=== PATIENT | male | born 1965 | race African-American/Black ===

== ENCOUNTER 2022-04-15 14:06 | Emergency (ER) | payer BC ==
--- NOTE | 2022-04-15 16:05 | EDPHYS ---
Physician Documentation [facility] Name: Dustin Baird Age: 56 yrs Sex: Male : 1965 Arrival Date: 04/15/2022 Time: 14:10 Bed Waiting Private MD: ED Physician Romeo Irizarry HPI: 04/15 16:30 This 56 yrs old Black Male presents to ER via Ambulatory with complaints of Cough, kb Congestion. 16:30 The patient or guardian reports cough, that is intermittent, described as mild, flu kb symptoms, low-grade fever. Onset: The symptoms/episode began/occurred yesterday. Severity of symptoms: At their worst the symptoms were moderate, in the emergency department the symptoms are unchanged. Modifying factors: The symptoms are alleviated by nothing, the symptoms are aggravated by nothing. Associated signs and symptoms: Pertinent positives: fever, rhinorrhea, sore throat, Pertinent negatives: chest pain, diarrhea, ear ache, nausea, vomiting. The patient has not experienced similar symptoms in the past. The patient has not recently seen a physician. Patient reports cough, congestion, itchy throat, and chills for 1 to 2 days. States he came to make sure he did not have COVID.. Historical: - Allergies: 14:42 No Known Allergies; iw - PMHx: 14:42 Hypertensive disorder; iw - PSHx: 14:42 None; iw - Immunization history:: Adult Immunizations unknown. - Social history:: Smoking status: unknown. ROS: 16:30 Abdomen/GI: Negative for abdominal pain, nausea, vomiting, diarrhea, and constipation. kb 16:30 Constitutional: Positive for chills, fever, malaise. 16:30 ENT: Positive for rhinorrhea, sinus congestion, sore throat. 16:30 Respiratory: Positive for cough, Negative for dyspnea on exertion, hemoptysis, orthopnea, pleurisy, shortness of breath, sputum production, wheezing. 16:30 All other systems are negative. Exam: 16:30 Constitutional: This is a well developed, well nourished patient who is awake, alert, kb and in no acute distress. Head/Face: Normocephalic, atraumatic. ENT: Moist Mucous membranes Cardiovascular: Regular rate and rhythm with a normal S1 and S2. No gallops, murmurs, or rubs. No pulse deficits. Respiratory: Respirations even and unlabored. No increased work of breathing. Talking in full sentences Abdomen/GI: Soft, non-tender. No distention Skin: Warm, dry with normal turgor. Normal color. MS/ Extremity: Pulses equal, no cyanosis. Neurovascular intact. Full, normal range of motion. Neuro: Awake and alert, GCS 15, oriented to person, place, time, and situation. Moves all extremities. Normal gait. Psych: Awake, alert, with orientation to person, place and time. Behavior, mood, and affect are within normal limits. Vital Signs: 14:41 BP 154 / 105; Pulse 65; Resp 20 S; Temp 97.3; Pulse Ox 100% on R/A; Weight 113.4 kg; iw Height 6 ft. 0 in. (182.88 cm); 14:41 Body Mass Index 33.91 (113.40 kg, 182.88 cm) iw MDM: 14:38 Patient medically screened. kb 16:30 Data reviewed: vital signs, nurses notes. Data interpreted: Pulse oximetry: on room air kb is 100 %. Interpretation: normal. Counseling: I had a detailed discussion with the patient and/or guardian regarding: the historical points, exam findings, and any diagnostic results supporting the discharge/admit diagnosis, lab results, the need for outpatient follow up, a family practitioner, to return to the emergency department if symptoms worsen or persist or if there are any questions or concerns that arise at home. 04/15 14:19 Order name: Flu; Complete Time: 14:55 iw 04/15 14:19 Order name: COVID-19 SARS RT PCR (Document "Date of Onset" if Symptomatic); Complete iw Time: 15:58 Administered Medications: No medications were administered Disposition Summary: 04/15/22 16:05 Discharge Ordered Location: Home kb Condition: Stable kb Diagnosis - SARS-associated coronavirus as the cause of diseases classified elsewhere kb Followup: kb - With: Emergency Department - When: As needed - Reason: Worsening of condition Followup: kb - With: Private Physician - When: 2 - 3 days - Reason: Recheck today's complaints, Continuance of care, Re-evaluation by your physician Discharge Instructions: - Discharge Summary Sheet kb - COVID-19 kb - Viral Illness, Adult kb Forms: - Medication Reconciliation Form kb - Thank You Letter kb - Antibiotic Education kb - Prescription Opioid Use kb Prescriptions: - Tessalon Perles 100 mg Oral Capsule - take 1 capsule by ORAL route every 8 hours As needed; 15 capsule; Refills: 0, kb Product Selection Permitted Signatures: Dispatcher [employer] Caro Magallon, REFERENCE LIBRARIAN-C REFERENCE LIBRARIAN-Yazmin Ramsay, RN RN iw
--- NOTE | 2022-04-15 16:05 | ER ---
Nurse's Notes [facility] Name: Dustin Baird Age: 56 yrs Sex: Male : 1965 Arrival Date: 04/15/2022 Time: 14:10 Bed Waiting Private MD: Diagnosis: SARS-associated coronavirus as the cause of diseases classified elsewhere Presentation: 04/15 14:41 Chief complaint: Patient states: cough, congestion, itchy throat X 1 -2 days. iw Coronavirus screen: Client presents with at least one sign or symptom that may indicate coronavirus-19. Ebola Screen: Patient negative for fever greater than or equal to 101.5 degrees Fahrenheit, and additional compatible Ebola Virus Disease symptoms Patient denies exposure to infectious person. Patient denies travel to an Ebola-affected area in the 21 days before illness onset. No symptoms or risks identified at this time. Initial Sepsis Screen: Does the patient meet any 2 criteria? No. Patient's initial sepsis screen is negative. Does the patient have a suspected source of infection? No. Patient's initial sepsis screen is negative. Risk Assessment: Do you want to hurt yourself or someone else? Patient reports no desire to harm self or others. Onset of symptoms was April 13, 2022. 14:41 Method Of Arrival: Ambulatory iw 14:41 Acuity: SUSANNE 4 iw Triage Assessment: 15:15 General: Appears in no apparent distress. Behavior is calm, appropriate for age. iw Respiratory: Breath sounds are clear bilaterally. Historical: - Allergies: 14:42 No Known Allergies; iw - PMHx: 14:42 Hypertensive disorder; iw - PSHx: 14:42 None; iw - Immunization history:: Adult Immunizations unknown. - Social history:: Smoking status: unknown. Screenin:15 Abuse screen: Denies threats or abuse. Denies injuries from another. Nutritional iw screening: No deficits noted. Tuberculosis screening: No symptoms or risk factors identified. Fall Risk None identified. Assessment: 15:00 General: Appears in no apparent distress. Behavior is calm, cooperative. iw 15:00 Neuro: Level of Consciousness is awake, alert, obeys commands, Oriented to person, iw place, time, situation, Moves all extremities. Full function. 15:00 Respiratory: Airway is patent Breath sounds are clear bilaterally. iw 15:15 Cardiovascular: Capillary refill < 3 seconds. iw 19:35 Pain:. iw Vital Signs: 14:41 BP 154 / 105; Pulse 65; Resp 20 S; Temp 97.3; Pulse Ox 100% on R/A; Weight 113.4 kg; iw Height 6 ft. 0 in. (182.88 cm); 14:41 Body Mass Index 33.91 (113.40 kg, 182.88 cm) iw ED Course: 14:10 Patient arrived in ED. mr 14:11 [facility] Alfred[facility] F[facility]C [facility]. kb 14:11 Romeo Irizarry MD is Attending Physician. kb 14:42 Triage completed. iw 15:00 Arm band placed on. iw 15:00 Patient has correct armband on for positive identification. iw 16:10 No provider procedures requiring assistance completed. Patient did not have IV access iw during this emergency room visit. 16:13 Yazmin Pierce, RN is Primary Nurse. iw Administered Medications: No medications were administered Medication: 15:00 VIS not applicable for this client. iw Outcome: 16:05 Discharge ordered by . kb 16:13 Discharged to home ambulatory, with family. iw 16:13 Condition: good 16:13 Discharge instructions given to patient, Instructed on discharge instructions, follow up and referral plans. medication usage, Demonstrated understanding of instructions, follow-up care, medications, Prescriptions given X 1. 16:13 Patient left the ED. iw Signatures: Caro Alfredo FNP-C FNP-Tim Tanya Hanley Yazmin Pierce, RN RN iw Corrections: (The following items were deleted from the chart) 19:36 15:00 General: Appears in no apparent distress. iw iw
[2022-04-15 17:43] VITALS: BP 154/105; TEMP 97.3; O2SAT 100
== END 2022-04-15 16:13 | disposition home or self-care (01) ==
LOC: ER 14:06
DX: U07.1 COVID-19 (principal); I10 Essential (primary) hypertension
CPT/HCPCS: 87804 ×2; U0003; 99282

== ENCOUNTER 2025-05-10 22:58 | Emergency (ER) | payer BC ==
--- OUTSIDE RECORDS SUMMARY | 2025-05-10 23:03 | XMS REPORT | Continuity of Care Document ---
Author Name Unknown Address [address] [facility] [address] [place] [address] [facility] [place] Address [address] [facility] [address] [place] [address] Care Team Providers Care Television [employer] Tester Name Role Phone Pcp-None Primary Care Physician Unavailab WES Bosch Attending Clinician Unavailable BRITANY NEWTON Attending Clinician Unavailable ANURADHA SERNA Attending Clinician UnavailWes Gutierrez MD Attending Clinician [phone] Toshia Reyes Attending Clinician + [phone] Anuradha Serna MD Attending Clinician [phone], [facility] Attending Clinician Unavailable TOSHIA BRITT Attending Clinician Unavailable Anuradha Serna MD Attending Clinician [phone] Deb Cantrell Attending Clinician [phone], [facility] Attending Clinician Unavailable Swati Gibson Attending Clinician [phone] SWATI VALDOVINOS Attending Clinician Unavailable Toshia Reyes Attending Clinician [phone] DEB JENSEN Attending Clinician Unavailable Lilian Sun MD Attending Clinician + [phone] ATANASOV, STRAHIL T Attending Clinician Unavaila ble PEDRO LUISNASPEDRITO STRAHIL T Attending Clinician Unavaila ble Doctor Unassigned, [place] Attending Clinician [facility] Tech, [facility] Attending Clinician Unavaila ble Lab, Ang - Db Attending Clinician Unavailable Edward Peacock Attending Clinician Unavailable Matthew Shirley Attending Clinician Unavail able Joey ROSSI, Regis Attending Clinician [phone] REGIS MENDOZA Attending Clinician Unavailable Negrita Pop MA Attending Clinician UnavailWes Gutierrez MD Attending Clinician [phone] JENNY SINGH Attending Clinician UnavailJenny Angulo Attending Clinician + [phone] Mick ROSSI, Olman Peña Attending Clinician [phone] William Avila DO Attending Clinician [phone] , [facility] Surg Spec Procedure Attending Clinician Unavailable Britany Newton MD Attending Clinician [phone] Comfort, [facility] Test Attending Clinician Unavailable Lab, [facility] Fam Pob I Attending Clinician Unavailab le 1, [facility] Bed Attending Clinician Unavail able Gramm TEAM FACILITATOR Tanna A Attending Clinician [phone] GRAMM, TANNA A Attending Clinician Unavailable Robles Joseph MD Attending Clinician [phone] Pob, [facility] Lab Main Attending Clinician UnavailWES Vazquez Admitting Clinician Unavailable BRITANY NEWTON Admitting Clinician Unavailable ANURADHA SERNAHMi Admitting Clinician UnavailBritany Tenorio MD Admitting Clinician [phone] Payers Payer Name Policy Type Policy Number Effective Date Expirati on Date Source [facility] [id number] 2020 00:00:00 Problems Condition Name Condition Details Condition Category Status Onset Date Resolution Date Last Treatment Date Treating Clinician Comments Source Erectile dysfunctio n, unspecifie d erectile dysfunctio n type Erectile dysfunctio n, unspecifie d erectile dysfunctio n type Disease Active 2023-09 00:00: [address] [facility] Low libido Low libido Disease Active 2024-1 0-29 00:00: 00 [facility] Cardiomega ly Cardiomega ly Disease Active 8- 00:00: 00 [facility] Chronic hiccups Chronic hiccups Disease Active 7 00:00: 00 [facility] Screening for colorectal cancer Screening for colorectal cancer Disease Active 2019-09 2-04 00:00: 00 Overview: Formattin g of this note might be different from the original. Added automatic ally from request for surgery [id number] [facility] Stage 2 chronic kidney disease Stage 2 chronic kidney disease Disease Active 2019-09 1-12 00:00: 00 [facility] Essential hypertensi on Essential hypertensi on Disease Active 11-18 00:00: 00 [facility] Cardiac murmur Cardiac murmur Disease Active 3 00:00: 00 [facility] Snoring Snoring Disease Active 11-18 00:00: 00 [facility] Obesity (BMI 30-39.9) Obesity (BMI 30-39.9) Disease Active 3 00:00: 00 [facility] Elevated total protein Elevated total protein Disease Active 3 00:00: 00 [facility] Elevated AST (SGOT) Elevated AST (SGOT) Disease Active 3 00:00: 00 [facility] Elevated serum creatinine Elevated serum creatinine Disease Active 3 00:00: 00 [facility] Hemorrhoid s Hemorrhoid s Disease Active 2011-09 0-17 00:00: 00 Overview: Formattin g of this note might be different from the original. Formattin g of this note might be different from the original. IMO 2017 Reg R1 [facility] Allergies, Adverse Reactions, Alerts Allergy Name Allergy Type Status Severity Reaction(s) Onset Date Inactive Date Treating Clinician Comments Source No Known Drug Allergie s DA Active U 04-09 00:00: 00 [facility] No Known Drug Allergie s DA Active U 04-05 00:00: 00 [facility] NO KNOWN ALLERGIE S Drug Class Active [facility] Social History Social Habit Start Date Stop Date Quantity Comments Source [facility] of Social function 2024-07-16 00:00:00 2024-07-16 00:00:00 [facility] Alcoholic beverage intake 2024-07-16 00:00:00 2024-07-16 00:00:00 Current non-drinker of alcohol (finding) [facility] Alcohol intake 2023-09-13 00:00:00 2023-09-13 00:00:00 Current non-drinker of alcohol (finding) [facility] Exposure to SARS-CoV-2 (event) 2022-11-20 00:00:00 2022-11-30 15:57:00 Not sure [facility] Tobacco use and exposure 2022-04-13 00:00:00 2022-04-13 00:00:00 Smokeless tobacco non-user [facility] Sex assigned at 1965 00:00:00 1965 00:00:00 [facility] Smoking Status Start Date Stop Date Source Never smoked tobacco [facility] Medications Ordered Medication Name Filled Medication Name Start Date Stop Date Current Medication? Ordering Clinician Indication Dosage Frequency Signature (SIG) Comments Components Source lisinopriL 20 mg tablet 03-14 00:00: 00 Yes [id number] 20mg Take 1 tablet by mouth in the morning. [facility] NIFEdipine ER 60 mg tablet 03-14 00:00: 00 Yes [id number] 60mg Take 1 tablet by mouth every morning. [facility] NIFEdipine XL 30 mg 24 hr tablet 03-14 00:00: 00 Yes [id number] 30mg Take 1 tablet by mouth every evening. [facility] rosuvastati n 10 mg tablet 03-14 00:00: 00 Yes [id number] 10mg Take 1 tablet by mouth at bedtime. [facility] NIFEdipine XL 30 mg 24 hr tablet 2022-09 00:00: 00 03-14 00:00 :00 No [id number] 30mg Take 1 tablet by mouth every evening. [facility] lisinopriL 20 mg tablet 2022-09 2-27 00:00: 00 03-14 00:00 :00 No [id number] 20mg Take 1 tablet by mouth in the morning. [facility] NIFEdipine ER 60 mg tablet 2022-09 2-27 00:00: 00 03-14 00:00 :00 No [id number] 60mg Take 1 tablet by mouth every morning. [facility] rosuvastati n 10 mg tablet 2022-09 2-27 00:00: 00 03-14 00:00 :00 No [id number] 10mg Take 1 tablet by mouth at bedtime. [facility] rosuvastati n 10 mg tablet 8-30 00:00: 00 09-13 00:00 :00 No 10mg Take 1 tablet by mouth at bedtime. [facility] lisinopriL 20 mg tablet 6-26 00:00: 00 09-13 00:00 :00 No [id number] 20mg Take 1 tablet by mouth in the morning. [facility] NIFEdipine ER 60 mg tablet 6-26 00:00: 00 09-13 00:00 :00 No [id number] 60mg Take 1 tablet by mouth in the morning. FOLLOW-UP FOR REFILLS [facility] carvediloL 6.25 mg tablet 626 00:00: 00 03-13 00:00 :00 No [id number] 6.25mg Take 1 tablet by mouth in the morning and 1 tablet in the evening. Take with meals. [facility] lisinopriL 20 mg tablet 2022-0 5-05 00:00: 00 03-13 00:00 :00 No [id number] 20mg Take 1 tablet by mouth in the morning. [facility] lisinopriL 20 mg tablet 2022-0 2-10 00:00: 00 01-20 00:00 :00 No [id number] 20mg Take 1 tablet by mouth in the morning. [facility] NIFEdipine ER 60 mg tablet 2021-09 0-25 00:00: 00 03-13 00:00 :00 No [id number] 60mg Take 1 tablet by mouth in the morning. FOLLOW-UP FOR REFILLS [facility] carvediloL 6.25 mg tablet 2021-09 0 00:00: 00 03-13 00:00 :00 No [id number] 6.25mg Take 1 tablet by mouth in the morning and 1 tablet in the evening. Take with meals. [facility] NIFEdipine ER 60 mg tablet 05-27 00:00: 00 07-12 00:00 :00 No [id number] 60mg Take 1 tablet by mouth in the morning. FOLLOW-UP FOR REFILLS [facility] NIFEdipine ER 60 mg tablet 05-18 00:00: 00 Yes [id number] 60mg Take 1 tablet by mouth in the morning. FOLLOW-UP FOR REFILLS [facility] carvediloL 6.25 mg tablet 05-18 00:00: 00 07-12 00:00 :00 No [id number] 6.25mg Take 1 tablet by mouth in the morning and 1 tablet in the evening. Take with meals. [facility] Omeprazole 20 mg tablet 04-15 00:00: 00 Yes [id number] 20mg Take 1 tablet by mouth in the morning. Follow-up with GI for further management . [facility] metoprolol succinate XL 25 mg 24 hr tablet 04-05 00:00: 00 05-18 00:00 :00 No [id number] 25mg Take 1 tablet by mouth in the morning. FOLLOW-UP WITH CARDIO FOR REFILLS [facility] NIFEdipine ER 60 mg tablet 04-05 00:00: 00 05-18 00:00 :00 No [id number] 60mg Take 1 tablet by mouth in the morning. FOLLOW-UP FOR REFILLS [facility] tadalafiL (CIALIS) 20 mg tablet 06-17 00:00: 00 Yes [id number] 20mg Take 1 tablet by mouth as needed for Erectile dysfunctio n. Not more than once daily [facility] Immunizations Ordered Immunization Name Filled Immunization Name Date Status Comments Source Influenza Virus Vaccine Quad IM 6-35 MO 2024-06-10 08:30:00 Completed [facility] TDAP 2024-06-10 08:30:00 Completed [facility] SARS-COV-2 COVID-19 PFIZER VACCINE 2024-06-10 08:30:00 Completed [facility] SARS-COV-2 COVID-19 PFIZER VACCINE 2024-03-14 09:30:00 Completed [facility] Influenza Virus Vaccine Quad IM 6-35 MO 2023-09-13 10:00:00 Completed [facility] TDAP 2023-09-13 10:00:00 Completed [facility] SARS-COV-2 COVID-19 PFIZER VACCINE 2023-09-13 10:00:00 Completed [facility] Influenza Virus Vaccine Quad IM 6-35 MO 2022-04-20 00:00:00 Completed [facility] TDAP 2022-04-20 00:00:00 Completed [facility] SARS-COV-2 COVID-19 PFIZER VACCINE 2022-04-20 00:00:00 Completed [facility] Influenza Virus Vaccine Quad IM 6-35 MO 2022-04-19 00:00:00 Completed [facility] TDAP 2022-04-19 00:00:00 Completed [facility] SARS-COV-2 COVID-19 PFIZER VACCINE 2022-04-19 00:00:00 Completed [facility] Influenza Virus Vaccine Quad IM 6-35 MO 2022-02-11 00:00:00 Completed [facility] TDAP 2022-02-11 00:00:00 Completed [facility] SARS-COV-2 COVID-19 PFIZER VACCINE 2022-02-11 00:00:00 Completed [facility] TDAP 2022-01-25 00:00:00 Completed [facility] TDAP 2022-01-25 00:00:00 Completed [facility] TDAP 2022-01-25 00:00:00 Completed [facility] TDAP 2022-01-25 00:00:00 Completed [facility] TDAP 2022-01-25 00:00:00 Completed [facility] TDAP 2022-01-25 00:00:00 Completed [facility] TDAP 2022-01-25 00:00:00 Completed [facility] TDAP 2022-01-25 00:00:00 Completed [facility] TDAP 2022-01-25 00:00:00 Completed [facility] TDAP 2022-01-25 00:00:00 Completed [facility] TDAP 2022-01-25 00:00:00 Completed [facility] TDAP 2022-01-25 00:00:00 Completed [facility] TDAP 2022-01-25 00:00:00 Completed [facility] TDAP 2022-01-25 00:00:00 Completed [facility] TDAP 2022-01-25 00:00:00 Completed [facility] TDAP 2022-01-25 00:00:00 Completed [facility] TDAP 2022-01-25 00:00:00 Completed [facility] TDAP 2022-01-25 00:00:00 Completed [facility] TDAP 2022-01-25 00:00:00 Completed [facility] TDAP 2022-01-25 00:00:00 Completed [facility] TDAP 2022-01-25 00:00:00 Completed [facility] TDAP 2022-01-25 00:00:00 Completed [facility] TDAP 2022-01-25 00:00:00 Completed [facility] TDAP 2022-01-25 00:00:00 Completed [facility] TDAP 2022-01-25 00:00:00 Completed [facility] TDAP 2022-01-25 00:00:00 Completed [facility] SARS-COV-2 COVID-19 PFIZER VACCINE 2022-01-09 00:00:00 Completed [facility] SARS-COV-2 COVID-19 PFIZER VACCINE 2022-01-09 00:00:00 Completed [facility] SARS-COV-2 COVID-19 PFIZER VACCINE 2022-01-09 00:00:00 Completed [facility] SARS-COV-2 COVID-19 PFIZER VACCINE 2022-01-09 00:00:00 Completed [facility] SARS-COV-2 COVID-19 PFIZER VACCINE 2022-01-09 00:00:00 Completed [facility] SARS-COV-2 COVID-19 PFIZER VACCINE 2022-01-09 00:00:00 Completed [facility] SARS-COV-2 COVID-19 PFIZER VACCINE 2022-01-09 00:00:00 Completed [facility] SARS-COV-2 COVID-19 PFIZER VACCINE 2022-01-09 00:00:00 Completed [facility] SARS-COV-2 COVID-19 PFIZER VACCINE 2022-01-09 00:00:00 Completed [facility] SARS-COV-2 COVID-19 PFIZER VACCINE 2022-01-09 00:00:00 Completed [facility] SARS-COV-2 COVID-19 PFIZER VACCINE 2022-01-09 00:00:00 Completed [facility] SARS-COV-2 COVID-19 PFIZER VACCINE 2022-01-09 00:00:00 Completed [facility] SARS-COV-2 COVID-19 PFIZER VACCINE 2022-01-09 00:00:00 Completed [facility] SARS-COV-2 COVID-19 PFIZER VACCINE 2022-01-09 00:00:00 Completed [facility] SARS-COV-2 COVID-19 PFIZER VACCINE 2022-01-09 00:00:00 Completed [facility] SARS-COV-2 COVID-19 PFIZER VACCINE 2022-01-09 00:00:00 Completed [facility] SARS-COV-2 COVID-19 PFIZER VACCINE 2022-01-09 00:00:00 Completed [facility] SARS-COV-2 COVID-19 PFIZER VACCINE 2022-01-09 00:00:00 Completed [facility] SARS-COV-2 COVID-19 PFIZER VACCINE 2022-01-09 00:00:00 Completed [facility] SARS-COV-2 COVID-19 PFIZER VACCINE 2022-01-09 00:00:00 Completed [facility] SARS-COV-2 COVID-19 PFIZER VACCINE 2022-01-09 00:00:00 Completed [facility] SARS-COV-2 COVID-19 PFIZER VACCINE 2022-01-09 00:00:00 Completed [facility] SARS-COV-2 COVID-19 PFIZER VACCINE 2022-01-09 00:00:00 Completed [facility] SARS-COV-2 COVID-19 PFIZER VACCINE 2022-01-09 00:00:00 Completed [facility] SARS-COV-2 COVID-19 PFIZER VACCINE 2022-01-09 00:00:00 Completed [facility] SARS-COV-2 COVID-19 PFIZER VACCINE 2022-01-09 00:00:00 Completed [facility] SARS-COV-2 COVID-19 PFIZER VACCINE 2022-01-08 00:00:00 Completed [facility] SARS-COV-2 COVID-19 PFIZER VACCINE 2022-01-08 00:00:00 Completed [facility] SARS-COV-2 COVID-19 PFIZER VACCINE 2022-01-08 00:00:00 Completed [facility] SARS-COV-2 COVID-19 PFIZER VACCINE 2022-01-08 00:00:00 Completed [facility] SARS-COV-2 COVID-19 PFIZER VACCINE 2022-01-08 00:00:00 Completed [facility] SARS-COV-2 COVID-19 PFIZER VACCINE 2022-01-08 00:00:00 Completed [facility] SARS-COV-2 COVID-19 PFIZER VACCINE 2022-01-08 00:00:00 Completed [facility] SARS-COV-2 COVID-19 PFIZER VACCINE 2022-01-08 00:00:00 Completed [facility] SARS-COV-2 COVID-19 PFIZER VACCINE 2022-01-08 00:00:00 Completed [facility] SARS-COV-2 COVID-19 PFIZER VACCINE 2022-01-08 00:00:00 Completed [facility] SARS-COV-2 COVID-19 PFIZER VACCINE 2022-01-08 00:00:00 Completed [facility] SARS-COV-2 COVID-19 PFIZER VACCINE 2022-01-08 00:00:00 Completed [facility] SARS-COV-2 COVID-19 PFIZER VACCINE 2022-01-08 00:00:00 Completed [facility] SARS-COV-2 COVID-19 PFIZER VACCINE 2022-01-08 00:00:00 Completed [facility] SARS-COV-2 COVID-19 PFIZER VACCINE 2022-01-08 00:00:00 Completed [facility] SARS-COV-2 COVID-19 PFIZER VACCINE 2022-01-08 00:00:00 Completed [facility] SARS-COV-2 COVID-19 PFIZER VACCINE 2022-01-08 00:00:00 Completed [facility] SARS-COV-2 COVID-19 PFIZER VACCINE 2022-01-08 00:00:00 Completed [facility] SARS-COV-2 COVID-19 PFIZER VACCINE 2022-01-08 00:00:00 Completed [facility] SARS-COV-2 COVID-19 PFIZER VACCINE 2022-01-08 00:00:00 Completed [facility] SARS-COV-2 COVID-19 PFIZER VACCINE 2022-01-08 00:00:00 Completed [facility] SARS-COV-2 COVID-19 PFIZER VACCINE 2022-01-08 00:00:00 Completed [facility] SARS-COV-2 COVID-19 PFIZER VACCINE 2022-01-08 00:00:00 Completed [facility] SARS-COV-2 COVID-19 PFIZER VACCINE 2022-01-08 00:00:00 Completed [facility] SARS-COV-2 COVID-19 PFIZER VACCINE 2022-01-08 00:00:00 Completed [facility] SARS-COV-2 COVID-19 PFIZER VACCINE 2022-01-08 00:00:00 Completed [facility] SARS-COV-2 COVID-19 PFIZER VACCINE 2022-01-08 00:00:00 Completed SARS-COV-2 COVID-19 PFIZER VACCINE 2020-12-18 00:00:00 Completed [facility] SARS-COV-2 COVID-19 PFIZER VACCINE 2020-12-18 00:00:00 Completed [facility] SARS-COV-2 COVID-19 PFIZER VACCINE 2020-12-18 00:00:00 Completed [facility] SARS-COV-2 COVID-19 PFIZER VACCINE 2020-12-18 00:00:00 Completed [facility] SARS-COV-2 COVID-19 PFIZER VACCINE 2020-12-18 00:00:00 Completed [facility] SARS-COV-2 COVID-19 PFIZER VACCINE 2020-12-18 00:00:00 Completed [facility] SARS-COV-2 COVID-19 PFIZER VACCINE 2020-12-18 00:00:00 Completed [facility] SARS-COV-2 COVID-19 PFIZER VACCINE 2020-12-18 00:00:00 Completed [facility] SARS-COV-2 COVID-19 PFIZER VACCINE 2020-12-18 00:00:00 Completed [facility] SARS-COV-2 COVID-19 PFIZER VACCINE 2020-12-18 00:00:00 Completed [facility] SARS-COV-2 COVID-19 PFIZER VACCINE 2020-12-18 00:00:00 Completed [facility] SARS-COV-2 COVID-19 PFIZER VACCINE 2020-12-18 00:00:00 Completed [facility] SARS-COV-2 COVID-19 PFIZER VACCINE 2020-12-18 00:00:00 Completed [facility] SARS-COV-2 COVID-19 PFIZER VACCINE 2020-12-18 00:00:00 Completed [facility] SARS-COV-2 COVID-19 PFIZER VACCINE 2020-12-18 00:00:00 Completed [facility] SARS-COV-2 COVID-19 PFIZER VACCINE 2020-12-18 00:00:00 Completed [facility] SARS-COV-2 COVID-19 PFIZER VACCINE 2020-12-18 00:00:00 Completed [facility] SARS-COV-2 COVID-19 PFIZER VACCINE 2020-12-18 00:00:00 Completed [facility] SARS-COV-2 COVID-19 PFIZER VACCINE 2020-12-18 00:00:00 Completed [facility] SARS-COV-2 COVID-19 PFIZER VACCINE 2020-12-18 00:00:00 Completed [facility] SARS-COV-2 COVID-19 PFIZER VACCINE 2020-12-18 00:00:00 Completed [facility] SARS-COV-2 COVID-19 PFIZER VACCINE 2020-12-18 00:00:00 Completed [facility] SARS-COV-2 COVID-19 PFIZER VACCINE 2020-12-18 00:00:00 Completed [facility] SARS-COV-2 COVID-19 PFIZER VACCINE 2020-12-18 00:00:00 Completed [facility] SARS-COV-2 COVID-19 PFIZER VACCINE 2020-12-18 00:00:00 Completed [facility] SARS-COV-2 COVID-19 PFIZER VACCINE 2020-12-18 00:00:00 Completed [facility] Influenza Virus Vaccine Quad IM 6-35 MO 2020-06-18 00:00:00 Completed [facility] Influenza Virus Vaccine Quad IM 6-35 MO 2020-06-18 00:00:00 Completed [facility] Influenza Virus Vaccine Quad IM 6-35 MO 2020-06-18 00:00:00 Completed [facility] Influenza Virus Vaccine Quad IM 6-35 MO 2020-06-18 00:00:00 Completed [facility] Influenza Virus Vaccine Quad IM 6-35 MO 2020-06-18 00:00:00 Completed [facility] Influenza Virus Vaccine Quad IM 6-35 MO 2020-06-18 00:00:00 Completed [facility] Influenza Virus Vaccine Quad IM 6-35 MO 2020-06-18 00:00:00 Completed [facility] Influenza Virus Vaccine Quad IM 6-35 MO 2020-06-18 00:00:00 Completed [facility] Influenza Virus Vaccine Quad IM 6-35 MO 2020-06-18 00:00:00 Completed [facility] Influenza Virus Vaccine Quad IM 6-35 MO 2020-06-18 00:00:00 Completed [facility] Influenza Virus Vaccine Quad IM 6-35 MO 2020-06-18 00:00:00 Completed [facility] Influenza Virus Vaccine Quad IM 6-35 MO 2020-06-18 00:00:00 Completed [facility] Influenza Virus Vaccine Quad IM 6-35 MO 2020-06-18 00:00:00 Completed [facility] Influenza Virus Vaccine Quad IM 6-35 MO 2020-06-18 00:00:00 Completed [facility] Influenza Virus Vaccine Quad IM 6-35 MO 2020-06-18 00:00:00 Completed [facility] Influenza Virus Vaccine Quad IM 6-35 MO 2020-06-18 00:00:00 Completed [facility] Influenza Virus Vaccine Quad IM 6-35 MO 2020-06-18 00:00:00 Completed [facility] Influenza Virus Vaccine Quad IM 6-35 MO 2020-06-18 00:00:00 Completed [facility] Influenza Virus Vaccine Quad IM 6-35 MO 2020-06-18 00:00:00 Completed [facility] Influenza Virus Vaccine Quad IM 6-35 MO 2020-06-18 00:00:00 Completed [facility] Influenza Virus Vaccine Quad IM 6-35 MO 2020-06-18 00:00:00 Completed [facility] Influenza Virus Vaccine Quad IM 6-35 MO 2020-06-18 00:00:00 Completed [facility] Influenza Virus Vaccine Quad IM 6-35 MO 2020-06-18 00:00:00 Completed [facility] Influenza Virus Vaccine Quad IM 6-35 MO 2020-06-18 00:00:00 Completed [facility] Influenza Virus Vaccine Quad IM 6-35 MO 2020-06-18 00:00:00 Completed [facility] Influenza Virus Vaccine Quad IM 6-35 MO 2020-06-18 00:00:00 Completed [facility] Vital Signs Vital Name Observation Time Observation Value Comments S ource Systolic blood pressure 2024-07-16 18:48:00 160 mm[Hg] [facility] Diastolic blood pressure 2024-07-16 18:48:00 103 mm[Hg] [facility] Heart rate 2024-07-16 18:48:00 71 /min [facility] Body temperature 2024-07-16 18:45:00 36.5 Ijeoma [facility] Respiratory rate 2024-07-16 18:45:00 20 /min [facility] Body weight 2024-07-16 18:45:00 117.028 kg [facility] BMI 2024-07-16 18:45:00 34.99 kg/m2 [facility] Oxygen saturation in Arterial blood by Pulse oximetry 2024-07-16 18:45:00 96 /min [facility] Systolic blood pressure 2024-03-14 14:43:00 138 mm[Hg] [facility] Diastolic blood pressure 2024-03-14 14:43:00 90 mm[Hg] [facility] Heart rate 2024-03-14 14:43:00 69 /min [facility] Body temperature 2024-03-14 14:43:00 36.67 Ijeoma [facility] Respiratory rate 2024-03-14 14:43:00 19 /min [facility] Body height 2024-03-14 14:43:00 182.9 cm [facility] Body weight 2024-03-14 14:43:00 116.257 kg [facility] BMI 2024-03-14 14:43:00 34.76 kg/m2 [facility] Oxygen saturation in Arterial blood by Pulse oximetry 2024-03-14 14:43:00 96 /min [facility] Systolic blood pressure 2023-09-13 16:27:00 147 mm[Hg] [facility] Diastolic blood pressure 2023-09-13 16:27:00 102 mm[Hg] [facility] Heart rate 2023-09-13 16:27:00 90 /min [facility] Oxygen saturation in Arterial blood by Pulse oximetry 2023-09-13 16:27:00 96 /min [facility] Respiratory rate 2023-09-13 16:26:00 16 /min [facility] Body height 2023-09-13 16:26:00 182.9 cm [facility] Body weight 2023-09-13 16:26:00 115.168 kg [facility] BMI 2023-09-13 16:26:00 34.44 kg/m2 [facility] Systolic blood pressure 2023-03-13 19:43:00 160 mm[Hg] [facility] Diastolic blood pressure 2023-03-13 19:43:00 113 mm[Hg] [facility] Heart rate 2023-03-13 19:43:00 48 /min [facility] Respiratory rate 2023-03-13 19:34:00 19 /min [facility] Body height 2023-03-13 19:34:00 182.9 cm [facility] Body weight 2023-03-13 19:34:00 115.168 kg [facility] BMI 2023-03-13 19:34:00 34.44 kg/m2 [facility] O[facility] saturation in Arterial blood by Pulse oximetry 2023-03-13 19:34:00 95 /min [facility] Systolic blood pressure 2023-02-28 14:47:00 124 mm[Hg] [facility] Diastolic blood pressure 2023-02-28 14:47:00 83 mm[Hg] [facility] Heart rate 2023-02-28 14:40:00 75 /min [facility] Body temperature 2023-02-28 14:40:00 36.72 Ijeoma [facility] Respiratory rate 2023-02-28 14:40:00 17 /min [facility] Body height 2023-02-28 14:40:00 182.9 cm [facility] Body weight 2023-02-28 14:40:00 115.622 kg [facility] BMI 2023-02-28 14:40:00 34.57 kg/m2 [facility] Oxygen saturation in Arterial blood by Pulse oximetry 2023-02-28 14:40:00 96 /min [facility] Systolic blood pressure 2022-11-30 21:12:00 136 mm[Hg] [facility] Diastolic blood pressure 2022-11-30 21:12:00 88 mm[Hg] [facility] Heart rate 2022-11-30 21:12:00 69 /min [facility] Respiratory rate 2022-11-30 21:11:00 19 /min [facility] Body height 2022-11-30 21:11:00 182.9 cm [facility] Body weight 2022-11-30 21:11:00 120.067 kg [facility] BMI 2022-11-30 21:11:00 35.90 kg/m2 [facility] Oxygen saturation in Arterial blood by Pulse oximetry 2022-11-30 21:11:00 94 /min [facility] Systolic blood pressure 2022-10-28 14:24:00 155 mm[Hg] [facility] Diastolic blood pressure 2022-10-28 14:24:00 99 mm[Hg] [facility] Heart rate 2022-10-28 14:16:00 71 /min [facility] Body height 2022-10-28 14:16:00 182.9 cm [facility] Body weight 2022-10-28 14:16:00 121.02 kg [facility] BMI 2022-10-28 14:16:00 36.18 kg/m2 [facility] Oxygen saturation in Arterial blood by Pulse oximetry 2022-10-28 14:16:00 96 /min [facility] Systolic blood pressure 2022-07-12 18:15:00 136 mm[Hg] [facility] Diastolic blood pressure 2022-07-12 18:15:00 82 mm[Hg] [facility] Heart rate 2022-07-12 18:15:00 80 /min [facility] Body temperature 2022-07-12 18:15:00 36.56 Ijeoma [facility] Body height 2022-07-12 18:15:00 182.9 cm [facility] Body weight 2022-07-12 18:15:00 117.618 kg [facility] BMI 2022-07-12 18:15:00 35.17 kg/m2 [facility] Oxygen saturation in Arterial blood by Pulse oximetry 2022-07-12 18:15:00 96 /min [facility] Systolic blood pressure 2022-05-18 20:18:00 165 mm[Hg] [facility] Diastolic blood pressure 2022-05-18 20:18:00 110 mm[Hg] [facility] Heart rate 2022-05-18 20:18:00 71 /min [facility] Oxygen saturation in Arterial blood by Pulse oximetry 2022-05-18 20:18:00 95 /min [facility] Body temperature 2022-05-18 20:14:00 36.56 Ijeoma [facility] Respiratory rate 2022-05-18 20:14:00 18 /min [facility] Body height 2022-05-18 20:14:00 182.9 cm [facility] Body weight 2022-05-18 20:14:00 116.847 kg [facility] BMI 2022-05-18 20:14:00 34.94 kg/m2 [facility] Procedures Procedure Date / Time Performed Performing Clinician Source CARI,POST-VOID RES,US,NON-IMAGING 2024-07-16 18:55:00 Wes Saavedra [facility] ASSIGNMENT OF BENEFITS 2023-02-28 14:27:25 Docto r Unassigned, [place] [facility] SLEEP STUDY DATA REPORT 2023-01-03 05:01:00 Doct or Unassigned, [place] [facility] PATIENT FINANCIAL POLICY 2022-11-30 21:01:56 Doctor Unassigned, [place] [facility] DME/SUPPLY JUSTIFICATION 2022-09-06 06:01:00 Doc tor Unassigned, [place] [facility] INSURANCE CORRESPONDENCE 2022-05-24 05:01:00 Doc tor Unassigned, [place] [facility] HB ECG ROUTINE & RHYTHM STRIP 2022-05-18 20:20:43 Anuradha Serna [facility] Encounters Start Date/Time End Date/Time Encounter Type Admission Type Attending Clinicians Care Facility Care Department Encounter ID Source 2024-07-17 08:34:13 Outpatient WES YANEZ [facility] SUJeana [id number] [facility] 2021-07-17 11:11:52 Outpatient BRITANY NEWTON [facility] [id number] [facility] 2025-02-04 09:15:00 2025-02-04 09:15:00 Outpatient WES YANEZ [facility] [id number] [facility] 2025-02-04 09:15:00 2025-02-04 09:15:00 Outpatient WES YANEZ [facility] [id number] [facility] 2024-11-26 11:30:00 2024-11-26 11:30:00 [facility] [id number] [facility] 2024-10-15 10:15:00 2024-10-15 10:15:00 Outpatient R [facility] [id number] [facility] 2024-08-27 10:45:00 2024-08-27 10:45:00 Outpatient R KIRK [facility] [id number] [facility] 2024-08-26 09:00:00 2024-08-26 09:00:00 Outpatient R ANURADHA SERNA [facility] [id number] [facility] 2024-07-16 13:00:00 2024-07-16 14:36:23 Outpatient R KIRK [facility] [id number] [facility] 2024-07-16 13:00:00 2024-07-16 14:36:23 Office Visit Kirk [facility] 1.840.114 350.1.13.10 4.2.7.2.686 [id number] [facility] 2024-06-11 00:00:00 2024-06-14 17:02:18 Telephone [facility] 1.2.840.114 350.1.13.10 4.2.7.2.686 [id number] [facility] 2024-06-13 00:00:00 2024-06-14 16:06:28 Telephone [facility] 1.2.840.114 350.1.13.10 4.2.7.2.686 [id number] [facility] 2024-06-11 08:30:00 2024-06-11 08:30:00 Outpatient R ISAACWERI, [facility] [id number] [facility] 2024-06-10 08:30:00 2024-06-10 08:45:00 Criminal Attorney Visit 2, Adc Lab Toshia Britt 2, Adc Lab [facility] 1.2.840.114 350.1.13.10 4.2.7.2.686 [id number] [facility] 2024-06-10 08:30:00 2024-06-10 08:30:00 Outpatient R TOSHIA BRITT [facility] [id number] [facility] 2024-03-14 09:30:00 2024-03-14 10:02:22 Outpatient R ANURADHA SERNA [facility] [id number] [facility] 2024-03-14 09:30:00 2024-03-14 10:02:22 Office Visit Anuradha Serna [facility] 1.2.840.114 350.1.13.10 4.2.7.2.686 [id number] [facility] 2023-09-13 10:00:00 2023-09-13 10:55:00 Outpatient R ANURADHA SERNA [facility] [id number] [facility] 2023-09-13 10:00:00 2023-09-13 10:55:00 Office Visit Anuradha Serna [facility] 1.2.840.114 350.1.13.10 4.2.7.2.686 [id number] [facility] 2023-05-16 00:00:00 2023-05-16 00:00:00 Telephone Deb Jensen [facility] 1.2.840.114 350.1.13.10 4.2.7.2.686 [id number] [facility] 2023-05-12 08:45:00 2023-05-12 09:00:00 Criminal Attorney Visit 2, Adc Lab Ray, Swati Peña [facility] 1..840.114 350.1.13.10 4.2.7.2.686 [id number] [facility] 2023-05-12 08:45:00 2023-05-12 08:48:29 Outpatient R SWATI VALDOVINOS [facility] [id number] [facility] 2023-04-17 00:00:00 2023-04-17 00:00:00 Toshia Singh [facility] 1..840.114 350.1.13.10 4.2.7.2.686 [id number] [facility] 2023-03-13 14:20:00 2023-03-13 15:16:31 Outpatient R DEB JENSEN [facility] [id number] [facility] 2023-03-13 14:20:00 2023-03-13 15:16:31 Office Visit Deb Jensen [facility] 1..840.114 350.1.13.10 4.2.7.2.686 [id number] [facility] 2023-03-13 13:00:00 2023-03-13 13:00:00 Outpatient R DEB JENSEN [facility] [id number] [facility] 2023-03-10 00:00:00 2023-03-10 00:00:00 Telephone Lilian Sun [facility] 1..840.114 350.1.13.10 4.2.7.2.686 [id number] [facility] 2023-02-28 10:00:00 2023-02-28 10:30:00 Office Visit Lilian Sun [facility] 1.114 350..13.10 4.2.7.2.686 [id number] [facility] 2023-02-28 10:00:00 2023-02-28 10:00:00 Outpatient R LILIAN SUN STRAMDRobin [facility] [id number] [facility] 2023-02-28 00:00:00 2023-02-28 00:00:00 Orders Only Doctor Unassigned, [place] [facility] 1.114 350..13.10 4.2.7.2.686 [id number] [facility] 2023-02-28 00:00:00 2023-02-28 00:00:00 Telephone [facility] 1.114 350..13.10 4.2.7.2.686 [id number] [facility] 2023-02-07 09:30:00 2023-02-07 09:30:00 Outpatient R LILIAN SUN [facility] [id number] [facility] 2023-02-01 15:30:00 2023-02-01 15:30:00 [facility] [id number] [facility] 2023-01-18 08:40:00 2023-01-18 08:40:00 Outpatient DEB DIA [facility] [id number] [facility] 2023-01-16 00:00:00 2023-01-16 00:00:00 Toshia Singh [facility] 1.840.114 350..13.10 4.2.7.2.686 [id number] [facility] 2023-01-03 12:00:00 2023-01-03 12:15:00 Criminal Attorney Visit [facility] Pedro LuisNayan velezidalia Nicholas [facility] 1.2840.114 350.1.13.10 4.2.7.2.686 [id number] [facility] 2023-01-03 12:00:00 2023-01-03 12:00:00 [facility] [id number] 2023-01-03 00:00:00 2023-01-03 00:00:00 Orders Only Doctor Unassigned, [place] [facility] 1.2840.114 350.1.13.10 4.2.7.2.686 [id number] [facility] 2022-12-26 14:20:00 2022-12-26 14:20:00 Outpatient R DEB JENSEN [facility] [id number] [facility] 2022-12-08 00:00:00 2022-12-08 00:00:00 Telephone Lilian Sun [facility] 1.2.840.114 350.1.13.10 4.2.7.2.686 [id number] [facility] 2022-11-30 16:30:00 2022-11-30 17:00:00 Office Visit Pedro LuisNayan velezidalia [facility] 1.2840.114 350.1.13.10 4.2.7.2.686 [id number] [facility] 2022-11-30 16:30:00 2022-11-30 16:30:00 Outpatient R LILIAN SUN STRAMDRobin [facility] [id number] [facility] 2022-11-30 00:00:00 2022-11-30 00:00:00 Orders Only Doctor Unassigned, [place] [facility] 1.114 350.1.13.10 4.2.7.2.686 [id number] [facility] 2022-11-17 00:00:00 2022-11-17 00:00:00 [facility] 1.114 350.1.13.10 4.2.7.2.686 [id number] [facility] 2022-10-28 09:30:00 2022-10-28 10:32:41 Criminal Attorney Visit Lab, Sascha Britt [facility] 1.114 350.1.13.10 4.2.7.2.686 [id number] [facility] 2022-10-28 08:00:00 2022-10-28 09:25:56 Outpatient R TOSHIA BRITT [facility] [id number] [facility] 2022-10-28 08:00:00 2022-10-28 09:25:56 Office Visit Balwinder [facility] 1.114 350.1.13.10 4.2.7.2.686 [id number] [facility] 2022-09-23 14:30:00 2022-09-23 14:30:00 Outpatient R TOSHIA BRITT [facility] [id number] [facility] 2022-09-08 00:00:00 2022-09-08 00:00:00 Telephone Anuradha Serna [facility] 1.84.114 350.1.13.10 4.2.7.2.686 [id number] [facility] 2022-09-06 00:00:00 2022-09-06 00:00:00 Orders Only Doctor Unassigned, [place] [facility] 1.840.114 350.1.13.10 4.2.7.2.686 [id number] [facility] 2022-09-05 10:30:00 2022-09-05 10:41:00 Outpatient R ANURADHA SERNA [facility] [id number] [facility] 2022-09-05 00:00:00 2022-09-05 00:00:00 Telephone Lilian Sun [facility] 1..840.114 350.1.13.10 4.2.7.2.686 [id number] [facility] 2022-08-24 09:00:00 2022-08-24 09:00:00 Outpatient R ANURADHA SERNA [facility] [id number] [facility] 2022-07-28 00:00:00 2022-07-28 00:00:00 Toshia Singh [facility] 1..840.114 350.1.13.10 4.2.7.2.686 [id number] [facility] 2022-07-12 13:40:00 2022-07-12 13:49:48 Outpatient R DEB JENSEN [facility] [id number] [facility] 2022-07-12 13:40:00 2022-07-12 13:49:48 Office Visit Deb Jensen [facility] 1..840.114 350.1.13.10 4.2.7.2.686 [id number] [facility] 2022-07-01 14:00:00 2022-07-01 14:00:00 Outpatient R ANURADHA SERNA [facility] [id number] [facility] 2022-06-24 09:00:00 2022-06-24 09:00:00 Outpatient R ANURADHA SERNA [facility] [id number] [facility] 2022-06-02 00:00:00 2022-06-02 00:00:00 Telephone Anuradha Serna [facility] 1.2.840.114 350.1.13.10 4.2.7.2.686 [id number] [facility] 2022-05-27 16:00:00 2022-05-27 23:59:00 Outpatient R ANURADHA SERNA [facility] [id number] [facility] 2022-05-27 16:00:00 2022-05-27 16:00:00 Outpatient R ANURADHA SERNA [facility] [id number] [facility] 2022-05-24 00:00:00 2022-05-24 00:00:00 Orders Only Doctor Unassigned, [place] [facility] 1.840.114 350.1.13.10 4.2.7.2.686 [id number] [facility] 2022-05-21 00:00:00 2022-05-21 00:00:00 Telephone Anuradha Serna [facility] 1.2.840.114 350.1.13.10 4.2.7.2.686 [id number] [facility] 2022-05-18 14:30:00 2022-05-18 15:43:52 Office Visit Anuradha Serna [facility] 1.2.840.114 350.1.13.10 4.2.7.2.686 [id number] [facility] 2022-05-18 14:30:00 2022-05-18 15:43:52 Outpatient R ANURADHA SERNA [facility] [id number] [facility] 2022-05-18 14:30:00 2022-05-18 15:43:52 Outpatient R ANURADHA SERNA [facility] [id number] [facility] 2022-05-18 09:00:00 2022-05-18 09:00:00 Outpatient R ANURADHA SERNA [facility] [id number] [facility] 2022-05-12 00:00:00 2022-05-12 00:00:00 Refill Ray Swati A [facility] 1..840.114 350.1.13.10 4.2.7.2.686 [id number] [facility] 2022-05-02 00:00:00 2022-05-02 00:00:00 Refill Toshia Britt [facility] 1..840.114 350.1.13.10 4.2.7.2.686 [id number] [facility] 2022-04-21 00:00:00 2022-04-21 00:00:00 Telephone Ray [facility] 1..840.114 350.1.13.10 4.2.7.2.686 [id number] [facility] 2022-04-20 00:00:00 2022-04-20 00:00:00 Patient Secure Msg Doctor Unassigned, [place] [address].840.114 350.1.13.10 4.2.7.2.686 [id number] [facility] 2022-04-19 00:00:00 2022-04-19 00:00:00 Patient Secure Msg Doctor Unassigned, [place] [address].2840.114 350.1.13.10 4.2.7.2.686 [id number] [facility] 2022-04-18 00:00:00 2022-04-18 00:00:00 Telephone Swati Valdovinos [facility]IND[facility] 1..840.114 350.1.13.10 4.2.7.2.686 [id number] [facility] 2022-04-13 12:30:00 2022-04-13 13:21:19 Outpatient R SWATI VALDOVINOS [facility] [id number] [facility] 2022-04-13 12:30:00 2022-04-13 13:21:19 Office Visit Swati Valdovinos [facility] 1..840.114 350.1.13.10 4.2.7.2.686 [id number] [facility] 2022-04-09 07:58:00 2022-04-09 09:53:00 Emergency Emergency Ayush Edward [facility] [id number] [facility] 2022-04-09 07:58:00 2022-04-09 07:58:00 Emergency [facility] [id number] [facility] 2022-04-05 06:17:00 2022-04-05 09:51:00 Emergency Emergency Shirley, Matthew [facility] M[facility] [id number] [facility] 2022-04-05 06:17:00 2022-04-05 06:17:00 Emergency Emergency ShirleyMatthew MCSET[facility]m M[facility] [id number] [facility] 2022-04-05 00:00:00 2022-04-05 00:00:00 Toshia Singh [facility] 1..840.114 350.1.13.10 4.2.7.2.686 [id number] [facility] 2022-04-05 00:00:00 2022-04-05 00:00:00 Telephone Swati Valdovinos [facility] 1.2840.114 350.1.13.10 4.2.7.2.686 [id number] [facility] 2022-03-29 00:00:00 2022-03-29 00:00:00 Refill Laila Brittthia [facility] 1.2.114 350.1.13.10 4.2.7.2.686 [id number] [facility] 2022-03-02 00:00:00 2022-03-02 00:00:00 Orders Only Doctor Unassigned, [place] [facility] 1.0.114 350.1.13.10 4.2.7.2.686 [id number] [facility] 2022-02-28 00:00:00 2022-02-28 00:00:00 Telephone Laila Brittthia [facility] 1.2.114 350.1.13.10 4.2.7.2.686 [id number] [facility] 2022-02-24 00:00:00 2022-02-24 00:00:00 Refill Laila Brittthia [facility] 1..114 350.1.13.10 4.2.7.2.686 [id number] [facility] 2022-02-11 00:00:00 2022-02-11 00:00:00 Patient Secure Msg Doctor Unassigned, [place] [facility] 1.20.114 350.1.13.10 4.2.7.2.686 [id number] [facility] 2022-01-31 12:15:00 2022-01-31 13:01:55 Criminal Attorney Visit Lab, Sascha MendozaRegis [facility] 1.2.840.114 350.1.13.10 4.2.7.2.686 [id number] [facility] 2022-01-31 12:15:00 2022-01-31 12:15:00 Outpatient Manuel REGIS MENDOZA [facility] [id number] [facility] 2022-01-31 00:00:00 2022-01-31 00:00:00 Orders Only Doctor Unassigned, [place] [facility] 1.2.840.114 350.1.13.10 4.2.7.2.686 [id number] [facility] 2022-01-25 14:00:00 2022-01-25 14:44:37 Outpatient R BALWINDER TOSHIA [facility] [id number] [facility] 2022-01-25 14:00:00 2022-01-25 14:44:37 [facility] 1.2.840.114 350.1.13.10 4.2.7.2.686 [id number] [facility] 2022-01-25 14:00:00 2022-01-25 14:44:37 Outpatient R TOSHIA BRITT [facility] [id number] [facility] 2022-01-13 09:00:00 2022-01-13 09:00:00 Outpatient SWATI GUAMAN [facility] [id number] [facility] 2022-01-07 09:00:00 2022-01-07 09:00:00 Outpatient SWATI GUAMAN [facility] [id number] [facility] 2022-01-07 00:00:00 2022-01-07 00:00:00 Pre Visit Outreach Negrita Pop 1.840.114 350.1.13.10 4.2.7.2.686 [id number] [facility] 2022-01-03 00:00:00 2022-01-03 00:00:00 Pre Visit Outreach Negrita Pop 1.84.114 350.1.13.10 4.2.7.2.686 [id number] [facility] 2021-12-22 09:00:00 2021-12-22 09:00:00 Outpatient SWATI GUAMAN [facility] [id number] [facility] 2021-12-15 00:00:00 2021-12-15 00:00:00 Pre Visit Outreach Negrita Pop 1.840.114 350.1.13.10 4.2.7.2.686 [id number] [facility] 2021-09-14 00:00:00 2021-09-14 00:00:00 RefRegis Banuelos [facility] ONE ..114 350.1.13.10 4.2.7.2.686 [id number] [facility] 2021-09-11 00:00:00 2021-09-11 00:00:00 Refill Regis Mendoza [facility] ONE .114 350.1.13.10 4.2.7.2.686 [id number] [facility] 2021-07-23 00:00:00 2021-07-23 00:00:00 Swati Duque [facility] ONE 1.2.840.114 350.1.13.10 4.2.7.2.686 [id number] [facility] 2021-06-17 00:00:00 2021-06-17 00:00:00 Refill KirkWes [facility] Building 1.840.114 350.1.13.10 4.2.7.2.686 [id number] [facility] 2021-06-11 00:00:00 2021-06-11 00:00:00 Telephone Lilian Sun [facility] Building 1..114 350.1.13.10 4.2.7.2.686 [id number] [facility] 2021-06-11 00:00:00 2021-06-11 00:00:00 Orders Only Doctor Unassigned, [place] [facility] 1.840.114 350.1.13.10 4.2.7.2.686 [id number] [facility] 2021-04-26 00:00:00 2021-04-26 00:00:00 Refill Swati Valdovinos [facility] Office Building One ..114 350.1.13.10 4.2.7.2.686 [id number] [facility] 2021-04-23 00:00:00 2021-04-23 00:00:00 Refill Swati Valdovinos [facility] Office Building One ..114 350.1.13.10 4.2.7.2.686 [id number] [facility] 2021-04-05 00:00:00 2021-04-05 00:00:00 Refill Regis Mendoza [facility] Building One 1.0.114 350.1.13.10 4.2.7.2.686 [id number] [facility] 2021-03-06 00:00:00 2021-03-06 00:00:00 Refill Regis Mendoza [facility] Building One ..840.114 350.1.13.10 4.2.7.2.686 [id number] 044 [id number] [facility] 2021-02-13 00:00:00 2021-02-13 00:00:00 Refill Joey Regis [facility] Office Building One ..840.114 350.1.13.10 4.2.7.2.686 [id number] [facility] 2021-01-20 09:00:00 2021-01-20 09:00:00 Outpatient LILIAN JACKSON STRAHIL [facility] [id number] [facility] 2021-01-07 00:00:00 2021-01-07 00:00:00 Refill Swati Valdovinos [facility] Office Building One ..840.114 350.1.13.10 4.2.7.2.686 [id number] [facility] 2021-01-04 08:00:00 2021-01-04 08:00:00 Outpatient R WES SAAVEDRA [facility] [id number] [facility] 2020-12-31 13:30:00 2020-12-31 13:30:00 Outpatient JENNY GOETZ [facility] [id number] [facility] 2020-12-21 09:15:00 2020-12-21 09:15:00 Outpatient R [facility] [id number] [facility] 2020-12-14 13:30:00 2020-12-14 13:30:00 Outpatient JENNY GOETZ [facility] [id number] [facility] 2020-12-10 13:00:00 2020-12-10 13:00:00 Outpatient ANURADHA MO [facility] [id number] [facility] 2020-12-07 00:00:00 2020-12-07 00:00:00 Telephone Moises Jenny [facility] 1.114 350.1.13.10 4.2.7.2.686 [id number] [facility] 2020-12-06 00:00:00 2020-12-06 00:00:00 Olman Cintron [facility] Office Building One 1.114 350.1.13.10 4.2.7.2.686 [id number] [facility] 2020-12-01 00:00:00 2020-12-01 00:00:00 Patient Outreach William Avila [facility] 1.114 350.1.13.10 4.2.7.2.686 [id number] [facility] 2020-11-23 13:05:08 2020-11-23 14:25:39 Office Visit Wes Saavedra Rm, Adc Surg Spec Procedure [facility] Building 1.114 350.1.13.10 4.2.7.2.686 [id number] [facility] 2020-11-23 13:00:00 2020-11-23 13:00:00 Outpatient WES YANEZ [facility] [id number] [facility] 2020-11-23 00:00:00 2020-11-23 00:00:00 Orders Only Doctor Unassigned, [place] [facility] 1.114 350.1.13.10 4.2.7.2.686 [id number] [facility] 2020-11-18 09:30:00 2020-11-18 09:30:00 Outpatient LILIAN JACKSON STRAHIL [facility] [id number] [facility] 2020-11-10 00:00:00 2020-11-10 00:00:00 Refill Kirk [facility] Building 1.2840.114 350.1.13.10 4.2.7.2.686 [id number] [facility] 2020-11-09 00:00:00 2020-11-09 00:00:00 Telephone Kirk [facility] Building 1.840.114 350.1.13.10 4.2.7.2.686 [id number] [facility] 2020-11-06 00:00:00 2020-11-06 00:00:00 Refill Swati Valdovinos [facility] Office Building One 1.84.114 350.1.13.10 4.2.7.2.686 [id number] [facility] 2020-11-05 13:00:00 2020-11-05 13:00:00 Outpatient ANURADHA MO [facility] [id number] [facility] 2020-10-30 00:00:00 2020-10-30 00:00:00 Refill Swati Valdovinos [facility] Office Building One 1.84.114 350.1.13.10 4.2.7.2.686 [id number] [facility] 2020-10-26 00:00:00 2020-10-26 00:00:00 Orders Only Doctor Unassigned, [place] [facility] 1..114 350.1.13.10 4.2.7.2.686 [id number] [facility] 2020-10-12 10:51:00 2020-10-12 14:28:00 Hospital Encounter Britany Newton [facility] 1.2840.114 350.1.13.10 4.2.7.2.686 [id number] [facility] 2020-10-09 13:09:25 2020-10-09 13:24:25 Laboratory Only Only, Adc Test Britany Newton [facility] 1.2840.114 350.1.13.10 4.2.7.2.686 [id number] [facility] 2020-10-09 13:15:00 2020-10-09 13:15:00 [id number] 2020-10-09 10:19:12 2020-10-09 10:39:12 Criminal Attorney Visit Lab, Adc Fam Pob I Balwinder [facility] Office Building One 1..114 350.1.13.10 4.2.7.2.686 [id number] [facility] 2020-10-09 00:00:00 2020-10-09 00:00:00 Orders Only Doctor Unassigned, [place] [facility] 1.840.114 350.1.13.10 4.2.7.2.686 [id number] [facility] 2020-10-08 11:30:57 2020-10-08 12:05:11 Office Visit Balwinder [facility] Office Building One 1..114 350.1.13.10 4.2.7.2.686 [id number] [facility] 2020-10-08 11:30:00 2020-10-08 11:30:00 Outpatient R TOSHIA BRITT [facility] [id number] [facility] 2020-09-28 10:38:18 2020-09-28 11:36:31 Office Visit Wes Saavedra Rm, Adc Surg Spec Procedure [facility] Building 1.2.840.114 350.1.13.10 4.2.7.2.686 [id number] [facility] 2020-09-28 10:30:00 2020-09-28 10:30:00 Outpatient R WES SAAVEDRA [facility] [id number] [facility] 2020-09-28 00:00:00 2020-09-28 00:00:00 Orders Only Doctor Unassigned, [place] [facility] 1.2840.114 350.1.13.10 4.2.7.2.686 [id number] [facility] 2020-09-16 11:00:00 2020-09-16 11:00:00 Outpatient R LILIAN SUN STRAMDRobin [facility] [id number] [facility] 2020-09-16 08:09:28 2020-09-16 08:24:28 Telemedici ne Visit Lilian Sun [facility] 1.2.840.114 350.1.13.10 4.2.7.2.686 [id number] [facility] 2020-09-16 00:00:00 2020-09-16 00:00:00 Orders Only Doctor Unassigned, [place] [facility] 1.2840.114 350.1.13.10 4.2.7.2.686 [id number] [facility] 2020-09-14 13:15:00 2020-09-14 13:15:00 Outpatient R BRITANY NEWTON [facility] [id number] [facility] 2020-09-14 00:00:00 2020-09-14 00:00:00 Telephone Britany Newton [facility] 1.2.840.114 350.1.13.10 4.2.7.2.686 [id number] [facility] 2020-08-31 00:00:00 2020-08-31 00:00:00 Orders Only Doctor Unassigned, [place] [facility] 1.284.114 350.1.13.10 4.2.7.2.686 [id number] [facility] 2020-08-27 19:30:00 2020-08-27 19:30:00 Outpatient LILIAN JACKSON STRAHIL [facility] [id number] [facility] 2020-08-27 13:39:49 2020-08-27 16:09:49 Criminal Attorney Visit 1, [facility] Bed Lilian Sun [facility] 1.2840.114 350.1.13.10 4.2.7.2.686 [id number] [facility] 2020-08-27 00:00:00 2020-08-27 00:00:00 Orders Only Lilian Sun [facility] 1.2.840.114 350.1.13.10 4.2.7.2.686 [id number] [facility] 2020-08-26 09:28:08 2020-08-26 09:43:08 Office Visit Tanna Wilkinson [facility] 1.2840.114 350.1.13.10 4.2.7.2.686 [id number] [facility] 2020-08-26 09:15:00 2020-08-26 09:15:00 Outpatient R TANNA WILKINSON [facility] [id number] [facility] 2020-08-24 11:57:31 2020-08-24 12:12:31 Laboratory Only Only, Adc Test Lilian Sun [facility] 1.2.840.114 350.1.13.10 4.2.7.2.686 [id number] [facility] 2020-08-24 11:45:00 2020-08-24 11:45:00 Outpatient R [facility] [id number] [facility] 2020-08-20 09:43:19 2020-08-20 10:13:19 Office Visit Britany Newton [facility] 1.2.840.114 350.1.13.10 4.2.7.2.686 [id number] [facility] 2020-08-20 09:30:00 2020-08-20 09:30:00 Outpatient R BRITANY NEWTON [facility] [id number] [facility] 2020-08-20 00:00:00 2020-08-20 00:00:00 Prep For Surgery Derrell, Tanna Peña [facility] 1.2.840.114 350.1.13.10 4.2.7.2.686 [id number] [facility] 2020-08-19 09:35:54 2020-08-19 10:05:54 Office Visit Lilian Sun [facility] 1.2.840.114 350.1.13.10 4.2.7.2.686 [id number] [facility] 2020-08-19 09:00:00 2020-08-19 09:00:00 Outpatient R LILIAN SUN STRAHIL [facility] [id number] [facility] 2020-08-11 19:30:00 2020-08-11 19:30:00 Outpatient R LILIAN SUN STRAHIL [facility] [id number] [facility] 2020-08-11 13:22:56 2020-08-11 15:52:56 Criminal Attorney Visit 1, [facility] Bed Lilian Sun [facility] 1.0.114 350.1.13.10 4.2.7.2.686 [id number] [facility] 2020-08-11 00:00:00 2020-08-11 00:00:00 Orders Only Doctor Unassigned, [place] [facility] 1.2.114 350.1.13.10 4.2.7.2.686 [id number] [facility] 2020-08-07 08:49:50 2020-08-07 09:04:50 Laboratory Only Only, [facility] Test Robles Joseph [facility] 1.114 350.1.13.10 4.2.7.2.686 [id number] [facility] 2020-08-07 08:30:00 2020-08-07 08:30:00 Outpatient R [facility] [id number] [facility] 2020-08-05 14:02:27 2020-08-05 14:32:27 Office Visit Lilian Sun [facility] Building 1.114 350.1.13.10 4.2.7.2.686 [id number] [facility] 2020-08-05 14:00:00 2020-08-05 14:00:00 Outpatient R ALEXANDRU SUNRobin NAYAN SUNMDRobin [facility] [id number] [facility] 2020-07-30 00:00:00 2020-07-30 00:00:00 Telephone Swati Valdovinos [facility] Building 1.114 350.1.13.10 4.2.7.2.686 [id number] [facility] 2020-07-27 00:00:00 2020-07-27 00:00:00 [facility] 1.2.840.114 350.1.13.10 4.2.7.2.686 [id number] [facility] 2020-07-24 00:00:00 2020-07-24 00:00:00 Telephone Kirk [facility] 1.2.840.114 350.1.13.10 4.2.7.2.686 [id number] [facility] 2020-07-23 14:30:00 2020-07-23 14:30:00 Outpatient R [facility] [id number] [facility] 2020-07-23 12:08:08 2020-07-23 12:23:08 Criminal Attorney Visit Shania, Kiersten Lab Main [facility] 1.2.840.114 350.1.13.10 4.2.7.2.686 [id number] [facility] 2020-07-23 11:11:04 2020-07-23 11:47:11 Office Visit Kirk [facility] 1.2.840.114 350.1.13.10 4.2.7.2.686 [id number] [facility] 2020-07-23 00:00:00 2020-07-23 00:00:00 Orders Only Doctor Unassigned, [place] [facility] 1.2.840.114 350.1.13.10 4.2.7.2.686 [id number] [facility] 2020-07-14 14:45:00 2020-07-14 14:45:00 Outpatient R BRITANY NEWTON [facility] [id number] [facility] 2020-07-10 14:57:21 2020-07-10 15:45:07 Office Visit Swati Valdovinos [facility] Office Building One 1..840.114 350.1.13.10 4.2.7.2.686 [id number] [facility] 2020-07-10 15:00:00 2020-07-10 15:00:00 Outpatient R SWATI VALDOVINOS [facility] [id number] [facility] 2019-12-24 00:00:00 2019-12-24 00:00:00 Refill Swati Valdovinos [facility] Office Building One 1.840.114 350.1.13.10 4.2.7.2.686 [id number] [facility] 2019-10-22 00:00:00 2019-10-22 00:00:00 Orders Only Doctor Unassigned, [place] [facility] 1.840.114 350.1.13.10 4.2.7.2.686 [id number] [facility] 2019-10-18 00:00:00 2019-10-18 00:00:00 Refill Swati Valdovinos [facility] Office Building One 1.840.114 350.1.13.10 4.2.7.2.686 [id number] [facility] Results Test Description Test Time Test Comments Results Result Co mments Source [facility] Strep [id number] 08:00:00 * Test Item Value Reference Range Interpretation Comme nts Rapid Group A Strep Screen (test code = RSST) Positive Negative AA Critical value c alled to nora back by Bernie CHAWLA RN on: 04/09/22 at 0910by ETE04. SARS-CoV-2 Antigen (Rapid)2022-04-05 08:00:00* Test Item Value Reference Range Interpretation Comme nts SARS-CoV-2 Antigen (Rapid) (test code = [id number]) Positive Negative AA Critical value c alled to stephanie back by Asa WOLFF RN on: 04/05/22 at 0839by [facility].The clinical performance of rapid antigen diagnostic testslargely depends on the circumstances in which they are used.Rapid antigen tests perform best when the person is testedin the early stages of infection with SARS-CoV-2 when viralload is generally highest. They also may be informative indiagnostic testing situations in which the person has aknown exposure to a confirmed case of COVID-19. Rapidantigen tests can be used for screening testing in high-riskcongregate settings in which repeat testing could quicklyidentify persons with a SARS-CoV-2 infection to informinfection prevention and control measures, thus preventingtransmission.Shalini medina: CDC.gov, Interim Guidance for Rapid Antigen Testingfor SARS-CoV-2- Updated 06.07;https://www.cdc.gov/ coronavirus/2019-ncov/lab/ resources/snyabhw-drgdi-ig idelines.html Rapid Group A Strep Jwsoul5118-22-03 06:36:00* Test Item Value Reference Range Interpretation Comme nts Rapid Group A Strep Screen ( test code = RSST) Negative Negative Influenza Virus A B [id number] 06:36:00* Test Item Value Reference Range Interpretation Comme nts Influenza Virus A Antigen (t est code = INFAAB) Negative Negative Influenza Virus B Antigen (t est code = INFBAB) Negative Negative Throat Culture-Beta Strep [id number] 06:36:00* Test Item Value Reference Range Interpretation Comme nts Throat Culture-Beta Strep Only (test code = TCBS) No Beta strep Group A isolated. [facility] [address] [phone] Patient Name: Amari Baird Medical Record#: [id number] Address: [address] [place] [address] City/State/Zip: [place] [address]: Matthew Shirley MD Insurance: [facility] PPO Blue Cho ice /Age/Sex: 1965/56/M Self Pay Admit/Reg Date: 04/05/[address]: Matthew Shirley MD Location: SETED/ PCP: Pcp-Md ENID Loco Date of Service: 04/05/22 Order (s): XR chest 1V CPT Code: 84600 Report Number: [id number] Reason for Exam: Cough and shortness of breath PORTABLE CHEST SINGLE VIEW: COMPARISON: None. CLINICAL INFORMATION: Shortness of breath. Cough. Portal semierect view of the chest was submitted. The study is limited by body habitus. Cardiomediastinal structures are within normal limits. No pleural fluid or pulmonary infiltrates are identified. The bony architecture appears intact, where adequately seen. IMPRESSION: No active cardiopulmonary process is identified. Dictated By: Noel Estevez MD [id number] Signed By: Noel Estevez MD 04/05/2233 TD/TT: 04/05/22725 Tech: [id number] cc: PCPNO; [id number]* Matthew Shirley MD; Pcp-Md [facility] Loco Notes Date/Time Note Provider Source 2024-06-14 16:58:56 Reviewed labs and recommendations, discussed BP normals, BP instructions/log , Patient asking about PSA and Testosterone , discuss with PCP or urology, Hydration verbalized understanding Iris Kohler RN [facility] 2024-06-14 12:10:03 Amari Baird is a 58 year old male is returning missed call to clinic, would like a call back to discuss lab results. Janette Garcia [facility] 2024-06-14 11:48:53 Images from the original note were not included. Mail box is full, will attempt later , Still unable to reach patient as voicemail is full, results shared with , verbalized understanding Anuradha Serna MD P Cardiology Nurse CMP within acceptable limits. Creatinine mildly elevated 1.5 similar to 1 year ago. Recommend follow-up with PCP regarding elevated creatinine NT pro BNP within normal limits. A1c stable within normal limits LDL at goal. Magnesium normal. Follow-up as planned. Iris Kohler RN [facility] 2024-06-14 10:39:26 Amari Baird is a 58 year old male Pt calling back to go over his lab results.Pt asked if by possible he could get a call on his lunch @ 11:30 Please advise Chandni Gallagher [facility] 2024-06-14 09:54:08 Lvm for pt to call back re lab results. Missy Alfaro RN [facility] 2024-06-13 12:45:19 Patient returning missed call and asked if someone can call between 3-5:00. Ashish Briseno [facility] 2024-06-13 08:54:10 Images from the original note were not included. Attempted to contact patient, no answer I left a voice message to call back. Anuradha Serna MD P Cardiology Nurse CMP within acceptable limits. Creatinine mildly elevated 1.5 similar to 1 year ago. Recommend follow-up with PCP regarding elevated creatinine NT pro BNP within normal limits. A1c stable within normal limits LDL at goal. Magnesium normal. Follow-up as planned. Alley Blas MA [facility] 2024-06-11 14:51:33 Called Patient, No answer, Left message to call back. Gali Ewing RN [facility] 2024-06-11 11:59:22 Amari Baird is a 58 year old male Patient calling to discuss results. Please contact [phone] (home) [facility] 2024-06-10 08:30:00 Images from the original note were not included. Venipuncture collection performed by clean technique on the left anticubitus. Total of 1 attempts were made. Slight pressure and a bandage/dressing were applied to the site(s). The patient experienced no complications. The following specimens were processed according to instructions and sent to [facility] laboratories per lab order on 06/10/2024 : LT BLUE SST 1 RED LAV 1 PPT DK GREEN (LiHep) DK GREEN (SodH) MARCIAL DK BLUE (K2) DK BLUE (S) ACD Blood Culture NIPT/NTD [facility] 2023-05-17 15:18:33 Formatting of this n ote might be different from the original. Called and spoke with pt spouse discussed results. Pt spouse verbalized understanding. Aria Porter RN [facility] 2023-05-16 15:40:30 Formatting of this n ote is different from the original. KEVIN Nathan 05/15/2023 8:54 AM CDT Back to Top Results of labs: Electrolytes and kidney function are stable The 10-year ASCVD risk score (Terrie ROMERO, et al., 2019) is: 15.8% Values used to calculate the score: Age: 57 years Sex: Male Is Non- : Yes Diabetic: No Tobacco smoker: No Systolic Blood Pressure: 160 mmHg Is BP treated: Yes HDL Cholesterol: 47 mg/dL Total Cholesterol: 168 mg/dL Recommend crestor 10 mg QHS to mitigate risk. Attempted to call pt. No answer VM left for pt to return call to clinic. [facility] 2023-05-12 08:45:00 Formatting of this n ote is different from the original. Images from the original note were not included. Patient was fasting for labs. Venipuncture collection performed by clean technique on the left anticubitus. Total of 1 attempts were made. Slight pressure and a bandage/dressing were applied to the site(s). The patient experienced no complications. The following specimens were processed according to instructions and sent to [facility] laboratories per lab order on 05/12/2023 : LT BLUE SST 1 RED LAV PPT DK GREEN (LiHep) DK GREEN (SodH) MARCIAL DK BLUE (K2) DK BLUE (S) ACD Blood Culture NIPT/NTD [facility] 2022-04-09 09:45:[address] [address] Emergency Department Document Signed Patient: Amari Baird Medical Record#: [id number] : 1965 Acct:[id number] Age/Sex: 56 / M Admit/Reg Date: 04/09/22 Loc: [facility] Room: Report Number: [id number]: Edward Peacock MD Arrival - Arrival ED Triage Note: Pt presented c/o hiccups x4 days since began medication on monday04/05/22/ Pt states an hour after taking medication Pt feels pressure to chest/ Pt reports pressure leaves 2-4 hours after taking medications History of Present Illness Nursing note reviewed: Yes Source: patient, RN/MD Exam/History Limitations: no limitations Primary Care Provider: Pcp-Md Claudy Chief Complaint: General Medical Complaint Stated Complaint: bad hiccups, covid pos History of Present Illness: 56 year old male Pt presented c/o hiccups x4 days since began medication on monday04/05/22 for COVID. Pt states an hour after taking medication Pt feels pressure to chest/ Pt reports pressure leaves 2-4 hours after taking medications. Patient stated his throat has been feeling sore and swollen. (Sharon Wheeler) Allergies/Adverse Reactions: No Known Drug Allergies Allergy (Verified 04/09/22 08:17) Review of Systems ROS: Constitutional: No fevers, chills, sweats, weight loss Eye: No visual problems ENMT: No ear pain, nasal congestion, +sore throat Respiratory: No shortness of breath, cough Cardiovascular: No Chest pain, palpitations, syncope, swelling in legs, dyspnea on exertion Gastrointestinal: No nausea, vomiting, diarrhea, abdominal pain, no difficulty swallowing Genitourinary: No hematuria, no dysuria, no hesitancy, no frequency, no incontinence Lee/Lymph: Negative for bruising tendency, swollen lymph glands Endocrine: Negative for excessive thirst, glucose normal, no heat or cold intolerance Musculoskeletal: No back pain, neck pain, joint pain, muscle pain, decreased range of motion Integumentary: No rash, pruritus, abrasions, no skin ulcers Neurologic: No focal weakness, no paresthesia, no headaches, numbness or tingling, no seizures or tremors, +hiccups Psychiatric: Normal memory, normal mood (Sharon Wheeler) Past Medical/Surgical History Medical History: Medical History (Last Updated 04/05/22 @ 06:33 by Yvrose Castellanos, ASHLEE) HTN (hypertension) (Medical) I10 Surgical History: Surgical History (Last Updated 04/05/22 @ 06:33 by Yvrose Castellanos, ASHLEE) No history of previous surgery (Surgical) Family/Social History - Social History Smoking Status: Never smoker Current or Hx of Recreational Drug use: No 1. How Often Do You Have a Drink Containing Alcohol: a. Never Physical Exam General Appearance: WD/WN, Cooperative, Ambulatory, Mild Distress Head: Atraumatic, Normocephalic Eyes: PERRL, EOMI, Conjunctiva normal, Cornea normal Ears: Hearing grossly intact Nose: Normal, No nasal discharge Mouth/Throat: Mucosa moist, Pharyngeal erythema Neck: Supple, Non-tender Lymph: No adenopathy Chest: Atraumatic, Non-tender, No deformity Respiratory: No respiratory distress, No accessory muscle use Cardiovascular: R/R/R Abdominal: Soft, Non-distended Back: No deformity, Full range of motion Extremity/Musculoskeletal: Non-tender, No cyanosis, No edema Skin: Warm, Dry, No Rashes, No Ecchymosis Psych: Calm Neuro: A O X 3 Triage Vital Signs: Temperature 37.2 C 04/09/22 08:08 Temperature Source Oral 04/09/22 08:08 Pulse Rate 86 04/09/22 08:08 Respiratory Rate 24 04/09/22 08:08 Blood Pressure 155/84 H 04/09/22 08:08 Blood Pressure Source Automatic Cuff 04/09/22 08:08 Blood Pressure Mean 107 04/09/22 08:08 O2 Sat by Pulse Oximetry 96 04/09/22 08:08 Oxygen Delivery Method 04/09/22 08:08 Results/Orders - Results and Orders Lab Testing Results 04/09/22 08:00: Group A Strep Screen Positive A* Medications Ordered: Discontinued Medications Chlorpromazine HCl (Chlorpromazine 25 Mg/Ml Inj) 25 mg IM ONCE ONE Stop: 04/09/22 08:37 Last Admin: 04/09/22 09:24 Dose: 25 mg Documented By: MDM/COURSE Vital Signs Temperature 37.2 C 04/09/22 08:08 Pulse Rate 86 04/09/22 08:08 Respiratory Rate 24 04/09/22 08:08 Blood Pressure 155/84 H 04/09/22 08:08 O2 Sat by Pulse Oximetry 96 04/09/22 08:08 Temperature 37.2 C 04/09/22 08:08 Pulse Rate 86 04/09/22 08:08 Respiratory Rate 24 04/09/22 08:08 Blood Pressure 155/84 H 04/09/22 08:08 O2 Sat by Pulse Oximetry 96 04/09/22 08:08 Clinical Course: 04/09/22 09:48 I reviewed and agree with the nurse's notes. Labs reviewed. At termination of care, pt had noted significant improvement in symptoms. The results of the pertinent diagnostic studies and exam findings were discussed with the patient and or family. The patient's provisional diagnosis and plan of care were discussed with the patient and or guardian. Patient/guardian verbalized understanding. Patient will be discharged home with education for management of symptoms. Patient verbalized understanding of the need to follow up with the primary care provider. Strict return precautions given (Sharon Wheeler) Discharge Plan - Discharge Clinical Impression: Hiccups, Strep throat Disposition: Home or Self-Care Condition: Good Instructions: Self-Care for Sore Throats, ED Pharyngitis, Strep (Confirmed), ED Hiccups Care Plan Goals: Take medications as prescribed. Follow-up with primary care provider for further evaluation and treatment. Return to ER for worsening of symptoms. Prescriptions: New azithromycin [Zithromax Z-Pawel] 250 mg Tablet See Rx Instructions .ROUTE .COMPLEX Qty: 6 RF: 0 Transmission Status: Pending to [id number] chlorpromazine 25 mg Tablet 25 mg PO TID PRN (Reason: Hiccups) Qty: 30 RF: 0 Transmission Status: Received by [id number] No Action Paxlovid (EUA) 150 mg x 2- 100 mg Tablet See Rx Instructions .ROUTE .COMPLEX Qty: 1 RF: 0 Referrals: Pcp-Claudy,, [Primary Care Provider] - Print Language: Jordanian Dictated By: Sharon Wheeler NP Signed By: Sharon Wheeler NP 04/09/22 0949 Edward Peacock MD 04/09/22 1017 DD/ TD/TT: 04/09/2245 College Physics Instructor: BAIRON cc: COLTON* Pcp-Md ENID Loco MCSETXm
[2025-05-10 23:59] LABS: Influenza A Ag Negative; Influenza B Ag Negative
[2025-05-11] LABS: SARS-CoV-2 Antigen Rapid Res Positive (Negative)
--- NOTE | 2025-05-11 00:43 | ER ---
Nurse's Notes [facility] Name: Dustin Baird Age: 59 yrs Sex: Male : 1965 Arrival Date: 05/10/2025 Time: 22:58 Bed 13 Private MD: Diagnosis: SARS-associated coronavirus as the cause of diseases classified elsewhere Presentation: 05/10 23:30 Chief complaint: Patient states: Patient complains of shortness of breath, sinus eb1 congestion, cough, runny nose for 1.5 days. Denies any fevers. Coronavirus screen: Client presents with at least one sign or symptom that may indicate coronavirus-19. Ebola Screen: Patient negative for fever greater than or equal to 101.5 degrees Fahrenheit, and additional compatible Ebola Virus Disease symptoms Patient denies exposure to infectious person. Patient denies travel to an Ebola-affected area in the 21 days before illness onset. No symptoms or risks identified at this time. Initial Sepsis Screen: Does the patient meet any 2 criteria? No. Patient's initial sepsis screen is negative. Risk Assessment: Do you want to hurt yourself or someone else? Patient reports no desire to harm self or others. Onset of symptoms was May 08, 2025. 23:30 Method Of Arrival: Ambulatory eb1 23:30 Acuity: SUSANNE 4 eb1 23:30 Initial Sepsis Screen: Does the patient have a suspected source of infection? No. vc1 Patient's initial sepsis screen is negative. Triage Assessment: 05/11 01:15 General: Appears in no apparent distress. comfortable, Behavior is calm, cooperative. kd4 Neuro: Denies weakness dizziness, headache. Respiratory: Reports shortness of breath. GI: No deficits noted. : No deficits noted. Historical: - Allergies: 00:00 No Known Allergies; vc1 - Home Meds: 00:00 None [Active]; vc1 - PMHx: 00:00 Hypertensive disorder; vc1 - PSHx: 00:00 None; vc1 - Immunization history:: Adult Immunizations unknown. - Infectious Disease History:: Denies. - Social history:: Smoking status: unknown. Screenin:00 [facility] ED Fall Risk Assessment (Adult) History of falling in the last 3 months, vc1 including since admission No falls in past 3 months (0 pts) Confusion or Disorientation No (0 pts) Intoxicated or Sedated No (0 pts) Impaired Gait No (0 pts) Mobility Assist Device Used No (0 pt) Altered Elimination No (0 pt) Score/Fall Risk Level 0 - 2 = Low Risk Oriented to surroundings, Maintained a safe environment, Educated pt \T\ family on fall prevention, incl call for assistance when getting out of bed, Provided non-skid footwear. Abuse screen: Denies threats or abuse. Nutritional screening: No deficits noted. Tuberculosis screening: No symptoms or risk factors identified. 01:11 [facility] ED Fall Risk Assessment (Adult) History of falling in the last 3 months, kd4 including since admission No falls in past 3 months (0 pts) Confusion or Disorientation No (0 pts) Intoxicated or Sedated No (0 pts) Impaired Gait No (0 pts) Mobility Assist Device Used No (0 pt) Altered Elimination No (0 pt) Score/Fall Risk Level 0 - 2 = Low Risk Oriented to surroundings. Abuse screen: Denies threats or abuse. Nutritional screening: No deficits noted. Tuberculosis screening: No symptoms or risk factors identified. Assessment: 00:16 General: Received patient from triage. kd4 01:12 Pain: Denies pain. Respiratory: Airway is patent Respiratory effort is even, kd4 Vital Signs: 05/10 23:30 BP 160 / 98; Resp 18; Temp 98.2; Pulse Ox 97% on R/A; Pain 0/10; eb1 23:32 BP 160 / 98; Pulse 72; Resp 18; Temp 98.2; Pulse Ox 97% ; eb1 05/11 01:18 BP 135 / 105; Pulse 64; Resp 18; Temp 97.9(O); Pulse Ox 99% ; Pain 0/10; kd4 05/10 23:30 Pain Scale: Adult eb1 05/11 01:18 Pain Scale: Adult kd4 Richard Coma Score: 01:16 Eye Response: spontaneous(4). Motor Response: obeys commands(6). Verbal Response: kd4 oriented(5). Total: 15. ED Course: 05/10 23:01 Patient arrived in ED. jj6 23:01 Caro Alfred[facility] FNP-C [facility]. kb 23:01 Romeo Irizarry MD is Attending Physician. kb 23:30 COVID-19 Ag + Flu A+B Ag Sent. eb1 23:32 Triage completed. eb1 23:45 COVID-19 Ag + Flu A+B Ag Sent. eb1 05/11 00:04 Chest Single View XRAY In Process Unspecified. EDMS 00:16 Kelly Fisher, RN is Primary Nurse. kd4 01:11 Patient has correct armband on for positive identification. Bed in low position. Call kd4 light in reach. Side rails up X2. Provided Education on: D/C INSTRUCTION. 01:16 No provider procedures requiring assistance completed. Patient did not have IV access kd4 during this emergency room visit. Administered Medications: 00:22 Drug: Albuterol Inhalation 2.5 mg Inhalation once Route: Inhalation; eb1 00:22 Drug: Ipratropium Inhalation Aerosol 0.5 mg Inhalation once Route: Inhalation; eb1 00:22 Drug: predniSONE PO 40 mg PO once Route: PO; eb1 01:17 Follow up: Response: No adverse reaction kd4 Medication: 01:13 VIS not applicable for this client. vc1 Outcome: 00:42 Discharge ordered by . kb 01:16 Discharged to home ambulatory, kd4 01:16 Condition: stable 01:16 Discharge instructions given to patient, Instructed on discharge instructions, follow up and referral plans. Demonstrated understanding of instructions, follow-up care, 01:19 Patient left the ED. kd4 Signatures: Dispatcher [employer] EDAZ Caro Alfredo, SALES DEVELOPMENT REPRESENTATIVE-C SALES DEVELOPMENT REPRESENTATIVE-Latesha Jacobo RN RN eb1 Haydee Randhawa jj6 Lynda Tello RN RN vc1 Kelly Fisher, RN RN kd4
--- NOTE | 2025-05-11 00:43 | EDPHYS ---
Physician Documentation [facility] Name: Dustin Baird Age: 59 yrs Sex: Male : 1965 Arrival Date: 05/10/2025 Time: 22:58 Bed 13 Private MD: ED Physician Romeo Irizarry HPI: 05/11 00:42 This 59 yrs old Black Male presents to ER via Ambulatory with complaints of Breathing kb Difficulty, Cough, Congestion. 00:42 Patient is a 59-year-old male who presents for cough, congestion, runny nose that kb started yesterday. Denies shortness of breath but reports it is difficult to breathe out of his nose.. Historical: - Allergies: 00:00 No Known Allergies; vc1 - Home Meds: 00:00 None [Active]; vc1 - PMHx: 00:00 Hypertensive disorder; vc1 - PSHx: 00:00 None; vc1 - Immunization history:: Adult Immunizations unknown. - Infectious Disease History:: Denies. - Social history:: Smoking status: unknown. ROS: 00:42 Constitutional: As per HPI kb Exam: 00:42 Constitutional: This is a well developed, well nourished patient who is awake, alert, kb and in no acute distress. Head/Face: Normocephalic, atraumatic. ENT: Moist Mucous membranes Cardiovascular: Regular rate Respiratory: Respirations even and unlabored. No increased work of breathing. Talking in full sentences Skin: Warm, dry with normal turgor. Normal color. MS/ Extremity: Pulses equal, no cyanosis. Neurovascular intact. Full, normal range of motion. Neuro: Awake and alert, GCS 15, oriented to person, place, time, and situation. Vital Signs: 05/10 23:30 BP 160 / 98; Resp 18; Temp 98.2; Pulse Ox 97% on R/A; Pain 0/10; eb1 23:32 BP 160 / 98; Pulse 72; Resp 18; Temp 98.2; Pulse Ox 97% ; eb1 05/11 01:18 BP 135 / 105; Pulse 64; Resp 18; Temp 97.9(O); Pulse Ox 99% ; Pain 0/10; kd4 05/10 23:30 Pain Scale: Adult eb1 05/11 01:18 Pain Scale: Adult kd4 Richard Coma Score: 01:16 Eye Response: spontaneous(4). Motor Response: obeys commands(6). Verbal Response: kd4 oriented(5). Total: 15. MDM: 05/10 23:02 Medical Screening Exam initiated kb 05/11 00:33 Differential diagnosis: Bronchitis pneumonia, covid, flu. Data reviewed: vital signs, kb nurses notes. I considered the following discharge prescriptions or medication management in the emergency department I discussed and recommended Over The Counter medications, Antibiotics: At this time antibiotics are not recommended. Independent interpretation of the following test(s) in the Emergency Department X-Ray: My interpretation is no pneumonia. Counseling: I had a detailed discussion with the patient and/or guardian regarding the historical points, exam findings, and any diagnostic results supporting the discharge/admit diagnosis, lab results, radiology results, the need for outpatient follow up, a family practitioner, to return to the emergency department if symptoms worsen or persist or if there are any questions or concerns that arise at home. 05/10 23:09 Order name: COVID-19 Ag + Flu A+B Ag; Complete Time: 00:00 05/10 23:09 Order name: Chest Single View XRAY kb Administered Medications: 00:22 Drug: Albuterol Inhalation 2.5 mg Inhalation once Route: Inhalation; eb1 00:22 Drug: Ipratropium Inhalation Aerosol 0.5 mg Inhalation once Route: Inhalation; eb1 00:22 Drug: predniSONE PO 40 mg PO once Route: PO; eb1 01:17 Follow up: Response: No adverse reaction kd4 Disposition Summary: 05/11/25 00:42 Discharge Ordered Notes: Location: Home kb Condition: Stable kb Diagnosis - SARS-associated coronavirus as the cause of diseases classified elsewhere kb Followup: kb - With: Emergency Department - When: As needed - Reason: Worsening of condition Followup: kb - With: Private Physician - When: 2 - 3 days - Reason: Recheck today's complaints, Continuance of care, Re-evaluation by your physician Discharge Instructions: - Discharge Summary Sheet kb - COVID-19 kb - Viral Illness, Adult kb Forms: - Medication Reconciliation Form kb - Antibiotic Education kb - Prescription Opioid Use kb - Patient Portal Instructions kb - Leadership Thank You Letter kb Addendum: 05/13/2025 13:37 Co-signature as Attending Physician, Romeo Juan C MD I agree with the assessment and c frazier plan of care. Signatures: Dispatcher [employer] EDMS Caro Alfredo, SUPERVISOR COMMERCIAL FISH HATCHERY-C SUPERVISOR COMMERCIAL FISH HATCHERY-Ckb Romeo Irizarry MD MD cha Basinger, Emily RN RN eb1 Lynda Tello RN RN vc1 [facility], Kelly RN kd4 Corrections: (The following items were deleted from the chart) 05/10 23: 23:09 COVID-19 Ag + Flu A+B Ag+I.LAB.BRZ ordered. EDMS EDMS 23: 23:09 Chest Single View+RAD.RAD.BRZ ordered. EDMS EDMS
--- NOTE | 2025-05-11 00:55 | RAD REPORT ---
EXAM: Chest Single View CLINICAL INDICATION: 59-year-old male with cough and congestion. TECHNIQUE: Single view, AP portable chest was obtained. COMPARISON: None. FINDINGS: Unremarkable cardiac and mediastinal silhouette. Heart size is normal. Lungs are clear without focal opacity, pneumothorax or pleural effusions. The visualized bones are within normal limits. IMPRESSION: No acute pulmonary abnormalities. Electronically signed by: Yvrose Santizo MD 05/11/2025 12:37 AM CDT RP Due to temporary technical issues with the PACS/Celsion reporting system, reports are being saulo d by the in-house radiologist without review as a courtesy to ensure prompt reporting the interpreting radiologist is fully responsible for the content of the report. Transcribed Date/Time: 05/11/2025 1:52 AM
[2025-05-11 01:33] VITALS: BP 135/105; TEMP 97.9; O2SAT 99
== END 2025-05-11 01:19 | disposition home or self-care (01) ==
LOC: ER 22:58
DX: U07.1 COVID-19 (principal)
CPT/HCPCS: 36415; 71045; 87428; 99284